=== PATIENT | male | born 2000 | race Caucasian/White ===

== ENCOUNTER 2022-10-09 12:48 | Emergency (ER) | payer OTHER ==
[2022-10-09 13:07] VITALS: RESP 16; TEMP 97.9; BMI 28.5
[2022-10-09 13:21] VITALS: BP 143/101; PULSE 108
== END 2022-10-09 13:33 | disposition home or self-care (01) ==
LOC: FER 12:48
DX: R03.0 Elevated blood-pressure reading, without diagnosis of hypertension (principal); F41.9 Anxiety disorder, unspecified
CPT/HCPCS: 99282-25

== ENCOUNTER 2023-01-05 17:51 | Emergency (ER) | payer OTHER ==
[2023-01-05 18:09] VITALS: TEMP 99.4; BMI 26.2
[2023-01-05] MEDS ORDERED: diazePAM CARPU-JECT 10 MG/2 ML DISP.SYRIN IVPUSH ONE (18:27)
[2023-01-05] MEDS ORDERED: SODIUM CHLORIDE 500 ML IV STA (18:27)
[2023-01-05] MEDS ORDERED: diazePAM CARPU-JECT 10 MG/2 ML DISP.SYRIN ONE (19:03)
[2023-01-05 19:39] VITALS: BP 124/78; PULSE 101; RESP 18
== END 2023-01-05 20:16 | disposition home or self-care (01) ==
LOC: FER 17:51
PROC: 3E033GC Introduction of Other Therapeutic Substance into Peripheral Vein, Percutaneous Approach (ICD-10-PCS; principal; 2023-01-05)
PROC: 3E0337Z Introduction of Electrolytic and Water Balance Substance into Peripheral Vein, Percutaneous Approach (ICD-10-PCS; 2023-01-05)
DX: R00.2 Palpitations (principal); R42 Dizziness and giddiness; R11.0 Nausea; I47.1 Supraventricular tachycardia; F41.9 Anxiety disorder, unspecified; T44.905A Adverse effect of unspecified drugs primarily affecting the autonomic nervous system, initial encounter
CPT/HCPCS: 93005; 99291